=== PATIENT | female | born 1955 | race Caucasian/White ===

== ENCOUNTER 2017-04-13 10:44 | Outpatient (CLI) | payer BC ==
[2017-04-13 10:52] VITALS: BP 123/69
== END 2017-04-13 11:58 | disposition home or self-care (01) ==
LOC: ORTHO 10:44
PROVIDERS: ATTEND Nurse Practitioner Family
DX: S92.354D Nondisplaced fracture of fifth metatarsal bone, right foot, subsequent encounter for fracture with routine healing (principal); M19.071 Primary osteoarthritis, right ankle and foot; I10 Essential (primary) hypertension; X58.XXXD Exposure to other specified factors, subsequent encounter
CPT/HCPCS: 73630

== ENCOUNTER 2017-05-04 10:59 | Outpatient (CLI) | payer BC | END 2017-05-04 11:50 | disposition home or self-care (01) | LOC: ORTHO 10:59 | PROVIDERS: ATTEND Nurse Practitioner Family | DX: S92.351D Displaced fracture of fifth metatarsal bone, right foot, subsequent encounter for fracture with routine healing (principal); M19.071 Primary osteoarthritis, right ankle and foot; I10 Essential (primary) hypertension; X58.XXXD Exposure to other specified factors, subsequent encounter | CPT/HCPCS: 29540; 73630 ==

== ENCOUNTER 2017-05-31 10:05 | Outpatient (CLI) | payer BC ==
[2017-05-31 10:10] VITALS: BP 119/86
== END 2017-05-31 10:40 | disposition home or self-care (01) ==
LOC: ORTHO 10:05
PROVIDERS: ATTEND Nurse Practitioner Family
DX: S92.354D Nondisplaced fracture of fifth metatarsal bone, right foot, subsequent encounter for fracture with routine healing (principal); M77.31 Calcaneal spur, right foot; I10 Essential (primary) hypertension; X58.XXXD Exposure to other specified factors, subsequent encounter
CPT/HCPCS: 73630